=== PATIENT | male | born 1985 | race African-American/Black ===

== ENCOUNTER 2017-02-10 19:36 | Emergency (ER) | payer OTHER ==
[~2017-02-10] VITALS: Ht 175.3 cm; Wt 86.2 kg
--- NOTE | 2017-02-10 21:57 | ER.PDOC ---
General Chief Complaint: Extremities Stated Complaint: FINGER PAIN Time seen by MD: 21:54 Source: patient Exam Limitations: no limitations History of Present Illness Initial Comments Infection right index finger for 2 weeks Severity: moderate Allergies: Coded Allergies: No Known Allergies (Unverified , 02/10/17) Past Medical History Medical History: no pertinent history Surgical History: no surgical history Social History Smoking: greater than 1 pack/day Alcohol Use: occassionally Drug Use: none Constitutional: no symptoms reported Respiratory: no symptoms reported Cardiovascular: no symptoms reported Gastrointestinal: no symptoms reported Musculoskeletal: no symptoms reported Skin: see HPI All Other Systems: Reviewed and Negative Physical Exam General Appearance: alert, no distress Location: other (distal right index finger) Character: erythematous With: swelling, inflammation EENT: eyes nml inspection, lips/gums nml, pharynx nml Neck: trachea midline, no swelling Respiratory: no resp. distress, breath sounds nml CVS: reg. rate & rhythm, heart sounds nml Abdomen: non-tender, no organomegaly NEURO/PSYCH: oriented x 3, CN's nml as tested, motor nml, sensation nml, mood/ affect nml Departure Time of Disposition: 21:56 Disposition: 01 HOME, SELF-CARE Impression: Primary Impression: Cellulitis Qualified Codes: L03.113 - Cellulitis of right upper limb Condition: Stable Referrals: PCP,UNKNOWN (PCP) PRIMARY CARE PROVIDER Additional Instructions: Bactrim DS F/U with your PCP in 3-4 days VINCENT BROWN MD Feb 10, 2017 21:57
[2017-02-10 22:35] VITALS: BP 147/83
[2017-02-10] MEDS ORDERED: WATER ONE (22:35)
[2017-02-10] MEDS ORDERED: TRIPLE ANTIBIOTIC OINTMENT TP ONE (22:36)
== END 2017-02-10 22:05 | disposition home or self-care (01) ==
LOC: ER 19:36
DX: L03.113 Cellulitis of right upper limb (principal); F17.210 Nicotine dependence, cigarettes, uncomplicated
CPT/HCPCS: 99283